=== PATIENT | female | born 1940 | race Caucasian/White ===

== ENCOUNTER 2020-07-29 11:49 | Outpatient (CLI) | payer MEDICARE, OTHER, SELFPAY ==
[2020-07-29 12:01] VITALS: BP 124/74; PULSE 67; RESP 18; TEMP 37.1; O2SAT 97
--- NOTE | 2020-07-29 12:44 | PDOC.PAIN_ITS ---
Pain Clinic Procedure Note Procedure Note Procedure Note: INTRA-ARTICULAR SI JOINT INJECTION ANI ROJAS has been referred to the [facility] for intra- articular SI joint injection. Pre-operative diagnosis: disorder of sacrum Post-operative diagnosis: same as above COMMENTS: patient has chronic back pain. Patient was interviewed and the medical record reviewed. There were no medical, pharmacologic, radiographic or other structural contraindications to attempting fluoroscopically guided intra-articular SI joint injection. Risks and expected side effects as well as potential benefit of the procedure were reviewed and voiced concerns addressed. The printed consent form was signed and witnessed. Standard time-out procedure was performed. Patient was placed in the prone position on the fluoroscopy table and automated blood pressure cuff and pulse oximeter applied. The skin entry point for approaching bilateral SI joints was identified under the most advantageous fluoroscopic view and marked. Following thorough Chlorhexadine preparation of the skin and draping and 1% lidocaine infiltration of the skin entry point and subcutaneous tissues, a 22 gauge spinal needle was placed under fluoroscopic guidance into bilateral SI joints was identified under the most advantageous fluoroscopic view and marked. Following thorough Chlorhexadine preparation of the skin and draping and 1% lidocaine infiltration of the skin entry point and subcutaneous tissues, a 22 gauge spinal needle was placed under fluoroscopic guidance into bilateral SI joint. Intra-articular placement was confirmed by a clear arthrogram resulting from the injection of 0.25ml Omnipaque 240, 1ml 1% lidocaine, and 40mg Depomedrol were injected intra-articularily on each side with an initial reproduction of a significant component of the usual pain. Vital signs were stable throughout the procedure and were as recorded in the docflowsheet by the nursing staff. Follow up plans and appointments were discussed with the patient. Post procedure instruction was given as documented in nursing documentation and having met discharge criteria, and was discharged from the [facility]. COMMENTS: patient tolerated procedure well. Jozef Kincaid MD Pain Management CC: Karla Lagos
[2020-07-29] MEDS: Lidocaine 1% Pres-Free 5 ML VIAL IJ (12:50)
[2020-07-29] MEDS: methylPREDNISolone ACETATE 80 MG/ML VIAL IJ (12:50)
[2020-07-29] MEDS: Omnipaque 240 MG/ML 50 ML BTL IJ (12:50)
[2020-07-29 12:52] VITALS: BP 156/82; PULSE 83; RESP 17; O2SAT 94
--- NOTE | 2020-07-29 13:52 | DI.RAD_ITS ---
EXAM: XR PAIN CLINIC SACRIOILIAC 2V CLINICAL HISTORY: Dx: Sacroiliac Joint Dysfunction TECHNIQUE: 2D and realtime digital imaging was performed. COMPARISON: No exams were available for comparison FINDINGS: C-arm fluoroscopy was utilized by Dr. Kincaid during reported bilateral SI joint injection. Hard copy lana ws injection in both SI joints. Fluoro time, 40.4 seconds. IMPRESSION: RADIATION DOSE DELIVERED: Total DLP
== END 2020-07-29 12:09 ==
PROVIDERS: PCP Internal Medicine; Visit Provider Internal Medicine
DX: M53.3 Sacrococcygeal disorders, not elsewhere classified (principal)
CPT/HCPCS: 27096; 72200; J1040; Q9967

== ENCOUNTER 2022-12-01 10:55 | Outpatient (CLI) | payer MEDICARE, OTHER, SELFPAY ==
[2022-12-01 11:24] VITALS: BP 155/83; PULSE 65; RESP 20; TEMP 36.7; O2SAT 93
--- NOTE | 2022-12-01 12:00 | DI.RAD_ITS ---
Exam(s) XR PAIN CLINIC SACRIOILIAC 2V EXAM: XR PAIN CLINIC SACRIOILIAC 2V CLINICAL HISTORY: Dx: Sacroiliac joint dysfunction. TECHNIQUE: Fluoroscopy was provided for the referring physician for guidance with performing pain cl inic injection procedure. COMPARISON: No exams were available for comparison FINDINGS: Please see procedure note for details. Fluoro time: 32.4 seconds RADIATION DOSE DELIVERED: Ka,r=8.22 mGy
[2022-12-01] MEDS: Omnipaque 240 MG/ML 50 ML BTL IJ (12:06)
[2022-12-01 12:07] VITALS: BP 161/65; PULSE 79; RESP 22; O2SAT 99
[2022-12-01] MEDS: methylPREDNISolone ACETATE 80 MG/ML VIAL IJ (12:07)
--- NOTE | 2022-12-02 10:31 | PDOC.PAIN_ITS ---
Date of service: 12/01/22 Time of Service: 11:45 Pain Clinic Procedure Note Procedure Note Procedure Note: INTRA-ARTICULAR SI JOINT INJECTION ANI ROJAS has been referred to the [facility] for intra- articular SI joint injection. COMMENTS: She had this completed by Dr. Kincaid in our Center on 07/29/2022 and received >50% pain relief for 3+ months. Pre-procedure pain VAS was 8/10 Dx: Sacroiliac joint dysfunction Patient was interviewed and the medical record reviewed. There were no medical, pharmacologic, radiographic or other structural contraindications to attempting fluoroscopically guided intra-articular SI joint injection. Risks and expected side effects as well as potential benefit of the procedure were reviewed and voiced concerns addressed. The printed consent form was signed and witnessed. Standard time-out procedure was performed. Patient was placed in the prone position on the fluoroscopy table and automated blood pressure cuff and pulse oximeter applied. The skin entry point for nigel roaching the bilateral SI joints was identified under the most advantageous fluoroscopic view and marked. Following thorough Chlorhexadine preparation of the skin and draping and 1% lidocaine infiltration of the skin entry point and subcutaneous tissues, a 22 gauge spinal needle was placed under fluoroscopic guidance into the bilateral SI joints was identified under the most advantageous fluoroscopic view and marked. Intra-articular placement was confirmed by a clear arthrogram resulting from the injection of 0.25ml Omnipaque 240, 1ml 1% lidocaine, and 40mg Depomedrol were injected intra-articularily with an initial reproduction of a significant component of the usual pain. Vital signs were stable throughout the procedure and were as recorded in the docflowsheet by the nursing staff. If given, dosages of intravenous drugs for anxiolysis and analgesia were documented in MAR. Follow up plans and appointments were discussed with the patient. Post procedure instruction was given as documented in nursing documentation and having met discharge criteria, and was discharged from the [facility]. COMMENTS: Post-procedure pain VAS was 0/10. This procedure can be completed up to 4 times per 12 months if she receives at least 50% improvement in pain or has at least 50% functional improvement for 3 months. Jamie Love DO, MPH [facility]-Pain Management [facility] CC: Karla Lagos
== END 2022-12-01 10:56 | disposition home or self-care (01) ==
LOC: PC 10:55
PROVIDERS: PCP Internal Medicine; Visit Provider Preventive Medicine Occupational Medicine
DX: M46.1 Sacroiliitis, not elsewhere classified (principal); M54.50 Low back pain, unspecified
CPT/HCPCS: 27096; 72200; J1040; Q9967